=== PATIENT | female | born 1945 | race Caucasian/White ===

== ENCOUNTER 2025-02-23 12:49 | Inpatient (IN) | payer BC, OTHER ==
[~2025-02-23] VITALS: Ht 157.5 cm; Wt 53.6 kg
[~2025-02-23 12:49] MED LIST: DONE1TAB88 PO; DULO30CA2 PO; LORA-1121 PO; MAGN400T40 OR; MEMA10TA PO
[2025-02-23 13:30] VITALS: PULSE 101; RESP 18; O2SAT 99
--- NOTE | 2025-02-23 13:37 | ED.PDOC ---
Altered Mental Status HPI Comments 80-year-old female, with past medical history of Alzheimer's, dementia, hypertension, and psychosis presents to the emergency department for chief complaint of ALOC. Per EMS patient is coming from [facility] where staff called due to patient having a change in behavior and being more altered than usual. Per staff, patient's baseline is alert and oriented x2 to name and date however, since commencement of symptoms patient is A&Ox0. From patient's transfer paperwork it is noted that patient is a full code. Due to patient's condition no other symptoms, modifying factors, or medical history is obtainable at this time. Chief Complaint: ALOC Time Seen by MD: 13:00 Primary Care Provider: UNKNOWN Reviewed Notes: Nurses Notes, Membership Correspondent Notes, Medications, Allergies Allergies: Coded Allergies: Codeine (Unverified Allergy, Unknown, 08/24/14) Levofloxacin (Unverified Allergy, Unknown, 08/24/14) Quinine (Unverified Allergy, Unknown, 08/24/14) Home Meds Reported Medications Lorazepam (ATIVAN TABLET) 0.5 Mg Tb, 1 MG PO Q6HPRN PRN for ANXIETY, #90 TAB 09/04/14 Memantine Hydrochloride (Namenda) 10 Mg Tab, 20 PO DAILY for 30 Days, MG 09/04/14 Magnesium Oxide (MAGNESIUM OXIDE) 400 Mg Tab, 400 MG OR DAILY, TAB 09/04/14 Duloxetine Hcl (CYMBALTA CAPSULE) 30 Mg Cp, 30 MG PO DAILY, CP 09/04/14 Donepezil Hydrochloride (DONEPEZIL HCL) 10 Mg Tab, 10 MG PO BID for 30 Days, MG 09/04/14 Information Source: Emergency Med Personnel Mode of Arrival: EMS Severity: Moderate Timing: Hours Duration: Since onset Prehospital treatment: None Quality: Decreased Alertness Recent: None History of: Dementia Associated Signs and Symptoms: None Past Medical History PAST MEDICAL HISTORY: Alzheimer, Dementia, HTN Surgical History: Appendectomy, Cholecystectomy, Tonsillectomy 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: No Pertinent 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 Family History Family History: Unobtainable Social History Smoker: Non-Smoker Alcohol: Denies ETOH Use Drugs: Denies Drug Use Lives In: Home Unable to Obtain due to: Altered Mental Status All Other Systems: Reviewed and Negative Physical Exam General Appearance: Moderate Distress HEENT: Pale [place]junt[place]ae (L), Pale [place]ae (R), Pharynx Normal, TMs Normal Neck: Full Range of Motion, Non-Tender, Normal, Normal Inspection Respiratory: Chest Non-Tender, Lungs Clear, No Accessory Muscle Use, No Respiratory Distress, Normal Breath Sounds Cardiovascular: No Edema, No JVD, No Murmur, No Gallop, Normal Peripheral Pulses, Regular Rate/Rhythm Breast Exam: Deferred Gastrointestinal: No Organomegaly, Non Tender, No Pulsatile Mass, Normal Bowel Sounds, Soft Genitalia: Deferred Pelvic: Deferred Rectal: Deferred Extremities: No calf tenderness, Normal capillary refill, No pedal edema Musculoskeletal : Apperance: Normal 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 Was a procedure done?: No Differential Diagnosis (ALOC) Differential Diagnosis: Dehydration, Hypoglycemia, Sepsis X-Ray, Labs, Meds, VS Vital Signs Date Time Temp Pulse Resp B/P (MAP) Pulse Ox O2 Delivery O2 Flow Rate FiO2 02/23/25 15:22 74 12 128/78 (95) 98 02/23/25 15:04 72 13 137/70 (92) 99 02/23/25 13:30 101 18 99 Room Air* 0 21 02/23/25 13:30 97.6 101 18 112/75 (87) 99 97.6 02/23/25 12:53 97.2 97 12 110/83 96 97.2 Lab Test 02/23/25 14:41 02/23/25 13:56 02/23/25 13:21 Range/Units Urine Color Pending Urine Clarity Pending Urine pH Pending Urine Specific [place] Pending Urine Protein Pending Urine Ketones Pending Urine Blood Pending Urine Nitrite Pending Urine Bilirubin Pending Urine Urobilinogen Pending Urine Leukocyte Esterase Pending Urine RBC Pending Urine Microscopic WBC Pending Urine Squamous Epithelial Cells Pending Urine Bacteria Pending Urine Glucose Pending White Blood Count 7.8 4.4-10.8 10^3/uL Red Blood Count 3.49 L 4.0-5.20 10^6/uL Hemoglobin 8.6 L 12.2-16.2 g/dL Hematocrit 26.7 L 36.0-46.0 % Mean Corpuscular Volume 76.4 L 80.0-100.0 fL Mean Corpuscular Hemoglobin 24.6 L 28.0-32.0 pg Mean Corpuscular Hemoglobin Concent 32.2 32.0-36.0 g/dL Red Cell Distribution Width 20.5 H 11.8-14.3 % Platelet Count 300 140-450 10^3/uL Mean Platelet Volume 6.8 L 6.9-10.8 fL Neutrophils (%) (Auto) 70.9 37.0-80.0 % Lymphocytes (%) (Auto) 17.5 10.0-50.0 % Monocytes (%) (Auto) 8.0 0.0-12.0 % Eosinophils (%) (Auto) 3.0 0.0-7.0 % Basophils (%) (Auto) 0.6 0.0-2.0 % Neutrophils # (Auto) 5.5 1.6-8.6 10 ^3/uL Lymphocytes # (Auto) 1.4 0.4-5.4 10 ^3/uL Monocytes # (Auto) 0.6 0-1.3 10 ^3/uL Eosinophils # (Auto) 0.2 0-0.8 10 ^3/uL Basophils # (Auto) 0 0-0.2 10 ^3/uL Nucleated Red Blood Cells 0.0 % Sodium Level 141 136-145 mmol/L Potassium Level 4.4 3.5-5.1 mmol/L Chloride Level 109 H 98-107 mmol/L Carbon Dioxide Level 26 20-31 mmol/L Anion Gap 6 5-15 Blood Urea Nitrogen 10 9-23 mg/dL Creatinine 0.57 0.550-1.02 mg/dL Glomerular Filtration Rate Calc 93 >90 mL/min BUN/Creatinine Ratio 17.5 10.0-20.0 Serum Glucose 104 74-106 mg/dL Lactic Acid Level 1.3 0.4-2.0 mmol/L Calcium Level 8.9 8.7-10.4 mg/dL POC Glucose 96 70-106 mg/dl Current Medications Medications (Trade) Dose Ordered Sig/Zachary Route Start Time Stop Time Status Last Admin Sodium Chloride 1,000 ml @ 1,000 mls/hr Q1H ONCE IVB 02/23/25 13:45 02/23/25 14:44 DC 02/23/25 14:14 CXR Shows: IMPRESSION: 1. Scarring or linear atelectasis right base. No prior studies for comparison. Head CT Shows: IMPRESSION: 1. No acute intracranial abnormality. 2. Mild cerebral volume loss and mild chronic microvascular ischemic change. 3. 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 4. 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 IV Hep-Lock was established The patient was given a 1 L bolus of normal saline The patient's CBC shows anemia with a hemoglobin of 8.6 and hematocrit of 26.7 The chemistry panel is within normal limits At this time, the patient will be admitted with a diagnosis of autonomic dysfunction The urine test is pending Images Reviewed?: Images reviewed and evaluated by me Time of 1ST Reevaluation: 13:30 Reevaluation 1ST: Unchanged Patient Education/Counseling: Diagnosis, Treatment, Prognosis Family Education/Counseling: No Family Present SEPSIS Sepsis Screen Date sepsis recognized/suspect: Feb 23, 2025 Time Sepsis recognized/suspect: 1253 Recent Procedure: No On Antibiotic Therapy: No Respiratory Rate >20: No Heart Rate >90: Yes Temp<36 C (96.8 F) or >38.3 C: No SBP <90 or MAP <65 mmHG: No New Acute Mental Status Change: No Is the patient on CPAP, BIPAP,: No Physician Orders Urinalysis (02/23/25 13:36) Chest Portable (02/23/25 13:36) Head Without Contrast (02/23/25 13:36) Moran Catheters (02/23/25 13:36) Production Support Consultant (02/23/25 13:36) Pulse Oximetry (02/23/25 13:36) Blood Pressure (02/23/25 13:36) Heplock Iv (02/23/25 13:36) Blood Culture (02/23/25 13:36) Urine Bacterial Culture (02/23/25 14:49) Vital Signs Date Time Temp Pulse Resp B/P (MAP) Pulse Ox O2 Delivery O2 Flow Rate FiO2 02/23/25 15:22 74 12 128/78 (95) 98 02/23/25 15:04 72 13 137/70 (92) 99 02/23/25 13:30 101 18 99 Room Air* 0 21 02/23/25 13:30 97.6 101 18 112/75 (87) 99 97.6 02/23/25 12:53 97.2 97 12 110/83 96 97.2 Laboratory Tests Test 02/23/25 13:56 Lactic Acid Level 1.3 mmol/L (0.4-2.0) White Blood Count 7.8 10^3/uL (4.4-10.8) Medications Medications Dose Ordered Sig/Zachary Route Start Time Stop Time Status Last Admin Dose Admin Sodium Chloride 1,000 ml @ 1,000 mls/hr Q1H ONCE IVB 02/23/25 13:45 02/23/25 14:44 DC 02/23/25 14:14 Departure 1 Departure Time of Disposition: 16:18 Impression: Primary Impression: Autonomic dysfunction Additional Impression: Generalized weakness Disposition: 09 ADMITTED INPATIENT Admit to: [facility] Condition: Fair Critical Care Note Critical Care Time?: Yes (45 min-critical care time only) Stability Stability form required: Yes Unstable for transfer: Telemetry monitoring (Telemetry monitoring required), ED Physician Assesment (Clinical assesment) Heart Score Heart Score: Heart Score Response (Comments) Value History N/A 0 EKG N/A 0 Age N/A 0 Risk Factors N/A 0 Troponin N/A 0 Total 0 I personally scribed for CORAZON KELLEY MD ([email or web address]) on 02/23/25 at 13:37. Electronically submitted by Fanny Akbar ([email or web address]). I personally scribed for CORAZON KELLEY MD (TIMSLE) on 02/23/25 at 13:38. E lectronically submitted by Fanny Akbar ([email or web address]). I personally scribed for CORAZON KELLEY MD (TIMSLE) on 02/23/25 at 14:52. Radha ctronically submitted by Fanny Akbar ([email or web address]). I personally scribed for CORAZON KELLEY MD (TIMSLE) on 02/23/25 at 14:54. Elect ronically submitted by Fanny Akbar ([email or web address]). I personally scribed for CORAZON KELLEY MD ([email or web address]) on 02/23/25 at 15:14. Electronically submitted by Fanny Akbar ([email or web address]). CORAZON KELLEY MD Feb 23, 2025 13:37
[2025-02-23] MEDS: SODIUM CHLORIDE 0.9% 1,000 ML IVB ONE (14:14)
--- NOTE | 2025-02-23 14:34 | DVH ---
CHEST RADIOGRAPH Indication: aloc Technique: Single frontal view of the chest was obtained Comparison: None FINDINGS: Lines and Tubes: None Lungs: No focal consolidation. Scarring or linear atelectasis right base. No prior studies for comparison. Pleura: No effusion. No pneumothorax. Cardiomediastinal contours: Unremarkable Bones: No acute osseous abnormality. IMPRESSION: 1. Scarring or linear atelectasis right base. No prior studies for comparison.
[2025-02-23 14:38] LABS: Hematocrit 26.7 % (36.0-46.0); Hemoglobin 8.6 g/dL (12.2-16.2); Mean Corpuscular Hemoglobin 24.6 pg (28.0-32.0); Mean Corpuscular Volume 76.4 fL (80.0-100.0); Nucleated Red Blood Cells % 0.0 %
--- NOTE | 2025-02-23 14:45 | DVH ---
CLINICAL HISTORY: aloc TECHNIQUE: Helical imaging carried out from skull base to vertex without intravenous contrast. This exam was performed according to our departmental dose optimization program. Up-to-date CT equipment and radiation dose reduction techniques are utilized as appropriate. CTDIVol: 53.61 mGy DLP: 1075.63 mGy-cm WID: COMPARISON: None FINDINGS: Mild cerebral volume loss with concordant prominence of the subarachnoid spaces and ventricles. 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 There is mild patchy low attenuation in the cerebral white matter consistent with nonspecific white matter disease. Small infarct in the anterior limb left internal capsule. There is no midline shift or mass effect. The zambrano white matter interfaces are maintained. The basal cisterns are patent. There is no evidence of acute intracranial hemorrhage or extra-axial fluid collection. The mastoid air cells and visualized paranasal sinuses are well-aerated. IMPRESSION: 1. No acute intracranial abnormality. 2. Mild cerebral volume loss and mild chronic microvascular ischemic change. 3. 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 4. 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
[2025-02-23 15:08] LABS: Anion Gap 6 (5-15); Carbon Dioxide 26 mmol/L (20-31); Potassium 4.4 mmol/L (3.5-5.1); Sodium 141 mmol/L (136-145)
[2025-02-23 15:09] LABS: Calcium 8.9 mg/dL (8.7-10.4)
[2025-02-23 15:13] LABS: Glucose 104 mg/dL (74-106)
[2025-02-23 15:14] LABS: BUN/Creatinine Ratio 17.5 (10.0-20.0); Blood Urea Nitrogen 10 mg/dL (9-23)
[2025-02-23 15:16] LABS: Chloride 109 mmol/L (98-107)
[2025-02-23 16:29] LABS: Urine Protein, UAD Negative (Negative)
[2025-02-23 19:40] VITALS: PULSE 82; RESP 14; O2SAT 99
[2025-02-23] MEDS ORDERED: ONDANSETRON HCL 4 MG/2 ML VIAL IV PRN (19:45)
--- NOTE | 2025-02-23 21:49 | DVHHP2 ---
History of Present Illness Reason for Visit: Altered mental status History of Present Illness 80-year-old female presents for evaluation of altered mental status. Patient resides at [facility]. She has a history of dementia. She was noted to be progressively more lethargic and confused by staff at the [facility]. Currently she is lethargic oriented to self. No slurred speech or unilateral weakness. Past Medical History Hypertension, dementia Past Surgical History Cholecystectomy, tonsillectomy, appendectomy Family History Noncontributory Smoke: No ALCOHOL: none Drugs: None Lives: with Family Review of Systems Review of Systems Review of systems are currently negative otherwise addressed in HPI. Allergies: Coded Allergies: Codeine (Unverified Allergy, Unknown, 08/24/14) Levofloxacin (Unverified Allergy, Unknown, 08/24/14) Quinine (Unverified Allergy, Unknown, 08/24/14) Medications Current Medications Medications Dose Ordered Sig/Zachary Route Start Time Stop Time Status Last Admin Dose Admin Ceftriaxone Sodium 50 ml @ 100 mls/hr DAILY@09 IV 02/24/25 09:00 Donepezil HCl 10 mg BID PO 02/23/25 22:00 Duloxetine HCl 30 mg DAILY PO 02/24/25 10:00 Ondansetron HCl 4 mg Q4HP PRN IV 02/23/25 19:45 Enoxaparin Sodium 40 mg DAILY SC 02/24/25 10:00 Acetaminophen 650 mg Q6HP PRN PO 02/23/25 19:45 Exam Vital Signs Vital Signs Date Time Temp Pulse Resp B/P (MAP) Pulse Ox O2 Delivery O2 Flow Rate FiO2 02/23/25 20:00 98.2 74 15 147/79 (101) 97 98.2 02/23/25 19:40 Room Air* 0 21 Exam Gen: 80-year-old female in mild distress Skin: Warm, dry, normal color and texture, no rash. HEENT: Normocephalic atraumatic, mucous membranes moist and pink. Neck: Cervical and supraclavicular nodes normal without enlargement, trachea is midline, thyroid gland is normal without masses. Pulmonary: Clear to auscultation and percussion bilaterally. Cardiac: Regular rate and rhythm. No murmur Abdomen: Soft, nontender, nondistended, bowel sounds present all 4 quadrants, no guarding, no rigidity, no organomegaly. Extremities: No cyanosis, clubbing, no edema Neuro: Lethargic Labs/Xrays ORDERING PHYSICIAN: CORAZON KELLEY MD PROCEDURE(s): CXRP - CHEST PORTABLE REASON: aloc ORDER NUMBER(s): [id number], ACCESSION NUMBER(s): [id number] CHEST RADIOGRAPH Indication: aloc Technique: Single frontal view of the chest was obtained Comparison: None FINDINGS: Lines and Tubes: None Lungs: No focal consolidation. Scarring or linear atelectasis right base. No prior studies for comparison. Pleura: No effusion. No pneumothorax. Cardiomediastinal contours: Unremarkable Bones: No acute osseous abnormality. IMPRESSION: 1. Scarring or linear atelectasis right base. No prior studies for comparison. RING PHYSICIAN: CORAZON KELLEY MD PROCEDURE(s): HWOCT - HEAD WITHOUT CONTRAST REASON: aloc ORDER NUMBER(s): [id number], ACCESSION NUMBER(s): [id number] CLINICAL HISTORY: aloc TECHNIQUE: Helical imaging carried out from skull base to vertex without intravenous contrast. This exam was performed according to our departmental dose optimization program. Up-to-date CT equipment and radiation dose reduction techniques are utilized as appropriate. CTDIVol: 53.61 mGy DLP: 1075.63 mGy-cm WID: COMPARISON: None FINDINGS: Mild cerebral volume loss with concordant prominence of the subarachnoid spaces and ventricles. 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 There is mild patchy low attenuation in the cerebral white matter consistent with nonspecific white matter disease. Small infarct in the anterior limb left internal capsule. There is no midline shift or mass effect. The zambrano white matter interfaces are maintained. The basal cisterns are patent. There is no evidence of acute intracranial hemorrhage or extra-axial fluid collection. The mastoid air cells and visualized paranasal sinuses are well-aerated. IMPRESSION: 1. No acute intracranial abnormality. 2. Mild cerebral volume loss and mild chronic microvascular ischemic change. 3. 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 4. 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 Labs Test 02/23/25 14:41 02/23/25 13:56 02/23/25 13:21 Range/Units Urine Color Colorless Yellow Urine Clarity Clear Clear Urine pH 6.5 5.0-9.0 Urine Specific [place] 1.005 1.001-1.035 Urine Protein Negative Negative Urine Ketones Negative Negative Urine Blood Negative Negative /uL Urine Nitrite 2+ H Negative Urine Bilirubin Negative Negative Urine Urobilinogen Normal Negative mg/dL Urine Leukocyte Esterase 2+ Negative /uL Urine RBC <1 0 - 4 /hpf Urine Microscopic WBC 5 0-5 /HPF Urine Squamous Epithelial Cells Few <5 /hpf Urine Bacteria Few H None Seen /hpf Urine Glucose Normal Normal mg/dL White Blood Count 7.8 4.4-10.8 10^3/uL Red Blood Count 3.49 L 4.0-5.20 10^6/uL Hemoglobin 8.6 L 12.2-16.2 g/dL Hematocrit 26.7 L 36.0-46.0 % Mean Corpuscular Volume 76.4 L 80.0-100.0 fL Mean Corpuscular Hemoglobin 24.6 L 28.0-32.0 pg Mean Corpuscular Hemoglobin Concent 32.2 32.0-36.0 g/dL Red Cell Distribution Width 20.5 H 11.8-14.3 % Platelet Count 300 140-450 10^3/uL Mean Platelet Volume 6.8 L 6.9-10.8 fL Neutrophils (%) (Auto) 70.9 37.0-80.0 % Lymphocytes (%) (Auto) 17.5 10.0-50.0 % Monocytes (%) (Auto) 8.0 0.0-12.0 % Eosinophils (%) (Auto) 3.0 0.0-7.0 % Basophils (%) (Auto) 0.6 0.0-2.0 % Neutrophils # (Auto) 5.5 1.6-8.6 10 ^3/uL Lymphocytes # (Auto) 1.4 0.4-5.4 10 ^3/uL Monocytes # (Auto) 0.6 0-1.3 10 ^3/uL Eosinophils # (Auto) 0.2 0-0.8 10 ^3/uL Basophils # (Auto) 0 0-0.2 10 ^3/uL Nucleated Red Blood Cells 0.0 % Sodium Level 141 136-145 mmol/L Potassium Level 4.4 3.5-5.1 mmol/L Chloride Level 109 H 98-107 mmol/L Carbon Dioxide Level 26 20-31 mmol/L Anion Gap 6 5-15 Blood Urea Nitrogen 10 9-23 mg/dL Creatinine 0.57 0.550-1.02 mg/dL Glomerular Filtration Rate Calc 93 >90 mL/min BUN/Creatinine Ratio 17.5 10.0-20.0 Serum Glucose 104 74-106 mg/dL Lactic Acid Level 1.3 0.4-2.0 mmol/L Calcium Level 8.9 8.7-10.4 mg/dL POC Glucose 96 70-106 mg/dl SEPSIS Sepsis Screen Date sepsis recognized/suspect: Feb 23, 2025 Time Sepsis recognized/suspect: 2007 Recent Procedure: Yes On Antibiotic Therapy: No Respiratory Rate >20: No Heart Rate >90: No Temp<36 C (96.8 F) or >38.3 C: No SBP <90 or MAP <65 mmHG: No New Acute Mental Status Change: No Is the patient on CPAP, BIPAP,: No Physician Orders Urine Bacterial Culture (02/23/25 14:49) Ceftriaxone 1gm/50ml (Rocephin) (02/24/25 09:00) Donepezil Tablet (Aricept Tablet) (02/23/25 22:00) Duloxetine Hcl Capsule (Cymbalta Capsule (02/24/25 10:00) Basic Metabolic Panel (02/24/25 04:00) Admit (02/23/25 19:42) Ondansetron Hcl (Zofran) (02/23/25 19:45) Enoxaparin Sodium (Lovenox) (02/24/25 10:00) Cardiac Diet-2gna,Lofat,Lochol (02/24/25 Breakfast) Condition: Stable (02/23/25 19:42) Acetaminophen Tablet (Tylenol Tablet) (02/23/25 19:45) Bedrest With Bathroom Privileg (02/23/25 19:42) Vital Signs Date Time Temp Pulse Resp B/P (MAP) Pulse Ox O2 Delivery O2 Flow Rate FiO2 02/23/25 20:00 98.2 74 15 147/79 (101) 97 98.2 11/9/25 19:40 82 14 99 Room Air* 0 21 02/23/25 18:00 78 13 136/70 (92) 98 02/23/25 17:46 74 02/23/25 17:00 97.8 80 9 129/75 (93) 98 97.8 02/23/25 16:00 84 9 123/71 (88) 98 02/23/25 15:22 74 12 128/78 (95) 98 02/23/25 15:04 72 13 137/70 (92) 99 Laboratory Tests Test 02/23/25 13:56 Lactic Acid Level 1.3 mmol/L (0.4-2.0) White Blood Count 7.8 10^3/uL (4.4-10.8) Medications Medications Dose Ordered Sig/Zachary Route Start Time Stop Time Status Last Admin Dose Admin Ceftriaxone Sodium 50 ml @ 100 mls/hr ONCE ONCE IV 02/23/25 19:45 02/23/25 20:14 DC 02/23/25 20:22 100 MLS/HR Sodium Chloride 1,000 ml @ 1,000 mls/hr Q1H ONCE IVB 02/23/25 13:45 02/23/25 14:44 DC 02/23/25 14:14 1,000 MLS/HR Assessment/Plan Assessment/Plan Assessment Metabolic encephalopathy UTI Dementia Hypertension Plan Admit the patient to [facility] to the hospitalist Mak Urine bacterial culture pending Resume home medications Continue treatment per orders Plan discussed with: Patient My Orders Orders - LOU WALLIS AGACNSam Procedure Category Date Status Time Ceftriaxone 1gm/50ml PHA 02/24/25 In Process (Rocephin) 09:00 Donepezil Tablet PHA 02/23/25 In Process (Aricept Tablet) 22:00 Duloxetine Hcl PHA 02/24/25 In Process Capsule (Cymbalta 10:00 Basic Metabolic Panel LAB 02/24/25 Verified 04:00 Admit ADMIT 02/23/25 Transmitted 19:42 Ondansetron Hcl PHA 02/23/25 In Process (Zofran) 19:45 Enoxaparin Sodium PHA 02/24/25 In Process (Lovenox) 10:00 Cardiac DIET 02/24/25 Transmitted Diet-2gna,Lofat,Lochol Breakfast Condition: Stable IRENA 02/23/25 In Process 19:42 Acetaminophen Tablet PHA 02/23/25 In Process (Tylenol Tablet) 19:45 Bedrest With Bathroom IRENA 02/23/25 In Process Privileg 19:42 Date of Service: Feb 23, 2025 Billing Provider: LOU WALLIS Common Visit Codes: [id number] INP/OBS CARE (HIGH) LOU WALLIS Feb 23, 2025 21:49
[2025-02-23 22:50] VITALS: BP 134/89; PULSE 84; RESP 18; TEMP 97.9; O2SAT 96
[2025-02-23] MEDS: DONEPEZIL HYDROCHLORIDE 5 MG TAB PO SCH (23:12)
[2025-02-24] VITALS (7 sets, daily range): BP systolic 119–140; BP diastolic 70–96; PULSE 62–99; RESP 16–18; TEMP 97.8–98.8; O2SAT 94–98
[2025-02-24 08:28] LABS: Potassium 4.1 mmol/L (3.5-5.1); Sodium 141 mmol/L (136-145)
[2025-02-24 08:29] LABS: Calcium 8.8 mg/dL (8.7-10.4); Carbon Dioxide 23 mmol/L (20-31)
[2025-02-24 08:34] LABS: BUN/Creatinine Ratio 24.4 (10.0-20.0); Blood Urea Nitrogen 10 mg/dL (9-23); Glucose 81 mg/dL (74-106)
[2025-02-24 09:04] LABS: Anion Gap 9 (5-15)
[2025-02-24 09:06] LABS: Chloride 109 mmol/L (98-107)
[2025-02-24] MEDS: ENOXAPARIN SOD 40 MG/0.4 ML SYRINGE SC SCH (10:38)
--- NOTE | 2025-02-24 12:49 | DVHPN2 ---
Subjective confused at bedside with arianne oriented to self only Reviewed: H&P Changes from previous H/P or p: No Changes Objective Vitals Vital Signs Date Time Temp Pulse Resp B/P (MAP) Pulse Ox O2 Delivery O2 Flow Rate FiO2 02/24/25 09:00 98.8 82 16 119/82 (94) 96 98.8 02/24/25 08:00 Room Air* 0 21 Intake/Output Intake and Output 02/24/25 07:00 Intake Total 1250 ml Output Total 1500 ml Balance -250 ml Intake Oral 200 ml IV Total 1050 ml Output Urine Total 1500 ml General Appearance: Alert Lungs: Clear to auscultation Cardiovascular: Regular rate, Normal S1, Normal S2 Abdomen: Normal bowel sounds Medications Current Medications Medications Dose Ordered Sig/Zachary Route Start Time Stop Time Status Last Admin Dose Admin Ceftriaxone Sodium 50 ml @ 100 mls/hr DAILY@09 IV 02/24/25 09:00 02/24/25 09:00 100 MLS/HR Donepezil HCl 10 mg BID PO 02/23/25 22:00 02/23/25 23:12 10 MG Duloxetine HCl 30 mg DAILY PO 02/24/25 10:00 Ondansetron HCl 4 mg Q4HP PRN IV 02/23/25 19:45 Enoxaparin Sodium 40 mg DAILY SC 02/24/25 10:00 02/24/25 10:38 40 MG Acetaminophen 650 mg Q6HP PRN PO 02/23/25 19:45 Laboratory Results Laboratory Tests 02/23/25 13:56 02/24/25 06:53 Chemistry Test 02/23/25 13:56 02/24/25 06:53 Calcium Level 8.9 mg/dL (8.7-10.4) 8.8 mg/dL (8.7-10.4) Urinalysis Test 02/23/25 14:41 Urine Color Colorless (Yellow) Urine Clarity Clear (Clear) Urine pH 6.5 (5.0-9.0) Urine Specific [place] 1.005 (1.001-1.035) Urine Protein Negative (Negative) Urine Ketones Negative (Negative) Urine Blood Negative /uL (Negative) Urine Nitrite 2+ (Negative) H Urine Bilirubin Negative (Negative) Urine Urobilinogen Normal mg/dL (Negative) Urine Leukocyte Esterase 2+ /uL (Negative) Urine RBC <1 /hpf (0 - 4) Urine Microscopic WBC 5 /HPF (0-5) Urine Squamous Epithelial Cells Few /hpf (<5) Urine Bacteria Few /hpf (None Seen) H Urine Glucose Normal mg/dL (Normal) Microbiology Microbiology Date/Time Source Procedure Growth Status 02/23/25 14:41 Urine - Catheterized Urine Culture - Preliminary Resulted Assessment/Plan Assessment/Plan Acute Metabolic encephalopathy UTI Dementia Hypertension Continue IV ceftriaxone restart home medication Plan discussed with: Other ([facility]) Date of Service: Feb 24, 2025 Billing Provider: SANYA POND MD Common Visit Codes: [id number] INP/OBS CARE(HIGH) SANYA POND MD Feb 24, 2025 12:49
[2025-02-24] MEDS ORDERED: HAL5T PO (12:58)
[2025-02-24] MEDS ORDERED: QUET50TA PO (12:58)
[2025-02-24] MEDS ORDERED: QUET100T38 PO (12:58)
[2025-02-24] MEDS ORDERED: DONEPEZIL HYDROCHLORIDE 5 MG TAB PO SCH (22:00)
[2025-02-24] MEDS ORDERED: PATIENTS OWN MEDICATION (Donepezil Hydrochloride (Donepezil Hcl) 10 MG) PO SCH (22:00)
[2025-02-24] MEDS: DONEPEZIL HYDROCHLORIDE 5 MG TAB PO SCH (22:12)
[2025-02-25] VITALS (8 sets, daily range): BP systolic 127–141; BP diastolic 70–81; PULSE 67–82; RESP 14–18; TEMP 97.4–98.7; O2SAT 96–98
--- NOTE | 2025-02-25 18:07 | DVHPN2 ---
Subjective oriented to self only had a long discussion with daughter sydney and baseline confused Reviewed: H&P Changes from previous H/P or p: No Changes Objective Vitals Vital Signs Date Time Temp Pulse Resp B/P (MAP) Pulse Ox O2 Delivery O2 Flow Rate FiO2 02/25/25 16:55 97.4 67 16 133/73 (93) 98 97.4 02/25/25 08:00 Room Air* 0 21 Intake/Output Intake and Output 02/25/25 05:00 Intake Total 450 ml Output Total 900 ml Balance -450 ml Intake Oral 450 ml Output Urine Total 900 ml General Appearance: Alert Lungs: Clear to auscultation Cardiovascular: Regular rate, Normal S1, Normal S2 Abdomen: Normal bowel sounds Medications Current Medications Medications Dose Ordered Sig/Zachary Route Start Time Stop Time Status Last Admin Dose Admin Ceftriaxone Sodium 50 ml @ 100 mls/hr DAILY@09 IV 02/24/25 09:00 02/25/25 09:31 100 MLS/HR Ondansetron HCl 4 mg Q4HP PRN IV 02/23/25 19:45 Enoxaparin Sodium 40 mg DAILY SC 02/24/25 10:00 02/25/25 09:31 40 MG Acetaminophen 650 mg Q6HP PRN PO 02/23/25 19:45 Patient Own Medication 10 mg BID PO 02/24/25 22:00 UNV Laboratory Results Laboratory Tests 02/23/25 13:56 02/24/25 06:53 Urinalysis Test 02/23/25 14:41 Urine Color Colorless (Yellow) Urine Clarity Clear (Clear) Urine pH 6.5 (5.0-9.0) Urine Specific [place] 1.005 (1.001-1.035) Urine Protein Negative (Negative) Urine Ketones Negative (Negative) Urine Blood Negative /uL (Negative) Urine Nitrite 2+ (Negative) H Urine Bilirubin Negative (Negative) Urine Urobilinogen Normal mg/dL (Negative) Urine Leukocyte Esterase 2+ /uL (Negative) Urine RBC <1 /hpf (0 - 4) Urine Microscopic WBC 5 /HPF (0-5) Urine Squamous Epithelial Cells Few /hpf (<5) Urine Bacteria Few /hpf (None Seen) H Urine Glucose Normal mg/dL (Normal) Microbiology Microbiology Date/Time Source Procedure Growth Status 02/24/25 04:37 Nose MRSA Screen - Final Complete 02/23/25 14:41 Urine - Catheterized Urine Culture - Preliminary Resulted 02/23/25 13:56 Blood Blood Culture - Preliminary NO GROWTH AFTER 48 HOURS OF INCUBATION. Resulted Assessment/Plan Assessment/Plan Acute Metabolic encephalopathy UTI Dementia Hypertension Continue IV ceftriaxone restart home medication Per daughter would like to dc seroquel, haldol and any medications that can cause somnolence Plan discussed with: Patient Date of Service: Feb 25, 2025 Billing Provider: SANYA POND MD Common Visit Codes: [id number] INP/OBS CARE(HIGH) SANYA POND MD Feb 25, 2025 18:07
[2025-02-26] VITALS (9 sets, daily range): BP systolic 115–149; BP diastolic 50–83; PULSE 60–94; RESP 15–20; TEMP 97.2–99.4; O2SAT 97–98
[2025-02-26] MEDS: ACETAMINOPHEN 325 MG TAB PO PRN (09:52)
--- NOTE | 2025-02-26 14:01 | DVHDS2 ---
Discharge Summary Date of Admission Feb 23, 2025 at 19:42 Date of Discharge: Feb 26, 2025 Labs/Diagnostic Data: Laboratory Results Test 02/24/25 06:53 02/23/25 14:41 02/23/25 13:56 02/23/25 13:21 Sodium Level 141 mmol/L (136-145) Potassium Level 4.1 mmol/L (3.5-5.1) Chloride Level 109 mmol/L (98-107) Carbon Dioxide Level 23 mmol/L (20-31) Anion Gap 9 (5-15) Blood Urea Nitrogen 10 mg/dL (9-23) Creatinine 0.41 mg/dL (0.550-1.02) Glomerular Filtration Rate Calc 101 mL/min (>90) BUN/Creatinine Ratio 24.4 (10.0-20.0) Serum Glucose 81 mg/dL (74-106) Calcium Level 8.8 mg/dL (8.7-10.4) Urine Color Colorless (Yellow) Urine Clarity Clear (Clear) Urine pH 6.5 (5.0-9.0) Urine Specific [place] 1.005 (1.001-1.035) Urine Protein Negative (Negative) Urine Ketones Negative (Negative) Urine Blood Negative /uL (Negative) Urine Nitrite 2+ (Negative) Urine Bilirubin Negative (Negative) Urine Urobilinogen Normal mg/dL (Negative) Urine Leukocyte Esterase 2+ /uL (Negative) Urine RBC <1 /hpf (0 - 4) Urine Microscopic WBC 5 /HPF (0-5) Urine Squamous Epithelial Cells Few /hpf (<5) Urine Bacteria Few /hpf (None Seen) Urine Glucose Normal mg/dL (Normal) White Blood Count 7.8 10^3/uL (4.4-10.8) Red Blood Count 3.49 10^6/uL (4.0-5.20) Hemoglobin 8.6 g/dL (12.2-16.2) Hematocrit 26.7 % (36.0-46.0) Mean Corpuscular Volume 76.4 fL (80.0-100.0) Mean Corpuscular Hemoglobin 24.6 pg (28.0-32.0) Mean Corpuscular Hemoglobin Concent 32.2 g/dL (32.0-36.0) Red Cell Distribution Width 20.5 % (11.8-14.3) Platelet Count 300 10^3/uL (140-450) Mean Platelet Volume 6.8 fL (6.9-10.8) Neutrophils (%) (Auto) 70.9 % (37.0-80.0) Lymphocytes (%) (Auto) 17.5 % (10.0-50.0) Monocytes (%) (Auto) 8.0 % (0.0-12.0) Eosinophils (%) (Auto) 3.0 % (0.0-7.0) Basophils (%) (Auto) 0.6 % (0.0-2.0) Neutrophils # (Auto) 5.5 10 ^3/uL (1.6-8.6) Lymphocytes # (Auto) 1.4 10 ^3/uL (0.4-5.4) Monocytes # (Auto) 0.6 10 ^3/uL (0-1.3) Eosinophils # (Auto) 0.2 10 ^3/uL (0-0.8) Basophils # (Auto) 0 10 ^3/uL (0-0.2) Nucleated Red Blood Cells 0.0 % Lactic Acid Level 1.3 mmol/L (0.4-2.0) POC Glucose 96 mg/dl (70-106) Other Laboratory Tests 02/24/25 06:53 02/23/25 13:56 Brief Hx & Hospital Course: 80-year-old female presents for evaluation of altered mental status. Patient resides at [facility]. She has a history of dementia. She was noted to be progressively more lethargic and confused by staff at the facility. Currently she is lethargic oriented to self. No slurred speech or unilateral weakness. During hospital stay encephalopathy resolved UTI also got better, urine cx negative Condition at Discharge: Good Final Diagnosis/Problems List UTI Metabolic encephalopathy Discharge Disposition: Shelter Facility Discharge Instruct/Medications Diet: Regular Activity: No Restrictions, As Tolerated Follow Up/Referral: PCP in 7 days Medications: same home medications Scheduled Donepezil Hydrochloride (Donepezil Hcl), 10 MG PO BID, (Reported) Duloxetine Hcl (Cymbalta Capsule), 30 MG PO DAILY, (Reported) Haloperidol (Haldol), 1 TAB PO QPM, (Reported) Magnesium Oxide (Magnesium Oxide), 400 MG OR DAILY, (Reported) Memantine Hydrochloride (Namenda), 20 PO DAILY, (Reported) Quetiapine Fumerate (Seroquel), 1 TAB PO QAM, (Reported) Quetiapine Fumerate (Seroquel), 100 MG PO QPM, (Reported) Scheduled PRN Lorazepam (Ativan Tablet), 1 MG PO Q6HPRN PRN for ANXIETY, (Reported) Discharge Statement: "Patient was advised to return to the ER or call 911 if any headaches, dizziness, shortness of breath, chest pain, abdominal pain, bleeding, fevers, or worsening of medical condition. Patient was counseled about treatment plan, medications, possible side effects, patientverbalized understanding. All questions were answered to the best of my ability. This discharge took greater then 30 minutes in planning, reviewing documentation, counseling the patient, and discussing with other team members." ASSESSMENT ASSESSMENT Assessment UTI Metabolic encephalopathy Date of Service: Feb 26, 2025 Billing Provider: SANYA POND MD Common Visit Codes: [id number] DISCH DAY >30min SANYA POND MD Feb 26, 2025 14:01
--- NOTE | 2025-02-26 16:43 | DVHPN2 ---
Subjective oriented to self only had a long discussion with daughter sydney and baseline confused Reviewed: H&P Changes from previous H/P or p: No Changes Objective Vitals Vital Signs Date Time Temp Pulse Resp B/P (MAP) Pulse Ox O2 Delivery O2 Flow Rate FiO2 02/26/25 13:00 98.3 86 18 149/78 (101) 98 98.3 02/26/25 08:00 Room Air* 0 21 Intake/Output Intake and Output 02/26/25 05:00 Intake Total 520 ml Output Total 700 ml Balance -180 ml Intake Oral 520 ml Output Urine Total 700 ml General Appearance: Alert Lungs: Clear to auscultation Cardiovascular: Regular rate, Normal S1, Normal S2 Abdomen: Normal bowel sounds Medications Current Medications Medications Dose Ordered Sig/Zachary Route Start Time Stop Time Status Last Admin Dose Admin Ondansetron HCl 4 mg Q4HP PRN IV 02/23/25 19:45 Enoxaparin Sodium 40 mg DAILY SC 02/24/25 10:00 02/25/25 09:31 40 MG Acetaminophen 650 mg Q6HP PRN PO 02/23/25 19:45 02/26/25 09:52 650 MG Patient Own Medication 10 mg BID PO 02/24/25 22:00 UNV Cefepime HCl 50 ml @ 12.5 mls/hr Q8HR IV 02/26/25 22:00 UNV Laboratory Results Laboratory Tests 02/23/25 13:56 02/24/25 06:53 Urinalysis Test 02/23/25 14:41 Urine Color Colorless (Yellow) Urine Clarity Clear (Clear) Urine pH 6.5 (5.0-9.0) Urine Specific [place] 1.005 (1.001-1.035) Urine Protein Negative (Negative) Urine Ketones Negative (Negative) Urine Blood Negative /uL (Negative) Urine Nitrite 2+ (Negative) H Urine Bilirubin Negative (Negative) Urine Urobilinogen Normal mg/dL (Negative) Urine Leukocyte Esterase 2+ /uL (Negative) Urine RBC <1 /hpf (0 - 4) Urine Microscopic WBC 5 /HPF (0-5) Urine Squamous Epithelial Cells Few /hpf (<5) Urine Bacteria Few /hpf (None Seen) H Urine Glucose Normal mg/dL (Normal) Microbiology Microbiology Date/Time Source Procedure Growth Status 02/24/25 04:37 Nose MRSA Screen - Final Complete 02/23/25 14:41 Urine - Catheterized Urine Culture - Preliminary Enterobacter hormaechei Resulted 02/23/25 13:56 Blood Blood Culture - Preliminary NO GROWTH AFTER 72 HOURS OF INCUBATION. Resulted Assessment/Plan Assessment/Plan Acute Metabolic encephalopathy UTI Dementia Hypertension Continue IV ceftriaxone>cefepime. Reviewed urine cx and showed enterobacter restart home medication Per daughter would like to dc seroquel, haldol and any medications that can cause somnolence Plan discussed with: Other ([facility]) My Orders Orders - SANYA POND MD Procedure Category Date Status Time * Dietary Consult CONS 02/25/25 Transmitted 23:37 Sequential IRENA 02/25/25 In Process Compression Device 23:37 Discharge DISCHARGE 02/26/25 Transmitted 11:54 * Energy Systems Engineer CONS 02/26/25 Transmitted Consult 13:16 Cefepime 1gm/50ml PHA 02/26/25 Logged (Maxipime 1gm/50ml) 22:00 Date of Service: Feb 26, 2025 Billing Provider: SANYA POND MD Common Visit Codes: [id number] INP/OBS CARE(HIGH) SANYA POND MD Feb 26, 2025 16:43
[2025-02-26] MEDS: CEFEPIME 1GM/50ML 50 ML IV SCH (18:01)
[2025-02-27] VITALS (8 sets, daily range): BP systolic 123–138; BP diastolic 67–80; PULSE 69–91; RESP 16–18; TEMP 97.5–98.6; O2SAT 94–100
[2025-02-27] MEDS ORDERED: BACDST PO (12:29)
[2025-02-28 05:00] VITALS: BP 130/77; PULSE 61; RESP 18; TEMP 98.1; O2SAT 98
[2025-02-28 08:12] VITALS: RESP 16
--- NOTE | 2025-02-28 10:16 | DVHPN2 ---
Subjective oriented to self only had a long discussion with daughter sydney and baseline confused Reviewed: H&P Changes from previous H/P or p: No Changes Objective Vitals Vital Signs Date Time Temp Pulse Resp B/P (MAP) Pulse Ox O2 Delivery O2 Flow Rate FiO2 02/28/25 08:12 16 Room Air* 0 21 02/28/25 05:00 98.1 61 130/77 (94) 98 98.1 Intake/Output Intake and Output 02/28/25 07:00 Intake Total 1050 ml Output Total 1950 ml Balance -900 ml Intake Oral 1000 ml IV Total 50 ml Output Urine Total 1950 ml # Bowel Movements 2 General Appearance: Alert Lungs: Clear to auscultation Cardiovascular: Regular rate, Normal S1, Normal S2 Abdomen: Normal bowel sounds Medications Current Medications Medications Dose Ordered Sig/Zachary Route Start Time Stop Time Status Last Admin Dose Admin Ondansetron HCl 4 mg Q4HP PRN IV 02/23/25 19:45 Enoxaparin Sodium 40 mg DAILY SC 02/24/25 10:00 02/28/25 09:46 40 MG Acetaminophen 650 mg Q6HP PRN PO 02/23/25 19:45 02/26/25 09:52 650 MG Patient Own Medication 10 mg BID PO 02/24/25 22:00 UNV Cefepime HCl 50 ml @ 12.5 mls/hr Q12H IV 02/26/25 18:00 02/28/25 05:04 12.5 MLS/HR Laboratory Results Laboratory Tests 02/23/25 13:56 02/24/25 06:53 Urinalysis Test 02/23/25 14:41 Urine Color Colorless (Yellow) Urine Clarity Clear (Clear) Urine pH 6.5 (5.0-9.0) Urine Specific [place] 1.005 (1.001-1.035) Urine Protein Negative (Negative) Urine Ketones Negative (Negative) Urine Blood Negative /uL (Negative) Urine Nitrite 2+ (Negative) H Urine Bilirubin Negative (Negative) Urine Urobilinogen Normal mg/dL (Negative) Urine Leukocyte Esterase 2+ /uL (Negative) Urine RBC <1 /hpf (0 - 4) Urine Microscopic WBC 5 /HPF (0-5) Urine Squamous Epithelial Cells Few /hpf (<5) Urine Bacteria Few /hpf (None Seen) H Urine Glucose Normal mg/dL (Normal) Microbiology Microbiology Date/Time Source Procedure Growth Status 02/24/25 04:37 Nose MRSA Screen - Final Complete 02/23/25 14:41 Urine - Catheterized Urine Culture - Preliminary Enterobacter hormaechei Resulted 02/23/25 13:56 Blood Blood Culture - Preliminary NO GROWTH AFTER 72 HOURS OF INCUBATION. Resulted Assessment/Plan Assessment/Plan Acute Metabolic encephalopathy UTI Dementia Hypertension Continue IV ceftriaxone>cefepime. Reviewed urine cx and showed enterobacter>oral bactrim restart home medication Per daughter would like to dc seroquel, haldol and any medications that can cause somnolence Plan discussed with: Patient My Orders Orders - SANYA POND MD Procedure Category Date Status Time Discharge DISCHARGE 02/27/25 Transmitted 12:29 Date of Service: Feb 27, 2025 Billing Provider: SANYA POND MD Common Visit Codes: [id number] INP/OBS CARE(HIGH) SANYA POND MD Feb 28, 2025 10:16
[2025-02-28 11:36] VITALS: TEMP 36.7
[2025-02-28 13:00] VITALS: BP 114/74; PULSE 68; RESP 17; TEMP 97.9; O2SAT 96
[2025-02-28 17:21] VITALS: BP 132/80; PULSE 69; RESP 19; TEMP 98; O2SAT 95
== END 2025-02-28 18:43 | disposition home or self-care (01) | DRG 689 ==
LOC: EDBD 12:49 → ER 12:49 → OVERFLOW 19:42 → WEST WING 22:27 → CENTRAL 02-26 22:10
PROVIDERS: ADMIT Hospitalist; ATTEND Hospitalist
DX: N39.0 Urinary tract infection, site not specified (principal); G93.41 Metabolic encephalopathy; F02.80 Dementia in other diseases classified elsewhere, unspecified severity, without behavioral disturbance, psychotic disturbance, mood disturbance, and anxiety; I10 Essential (primary) hypertension; G90.89 Other disorders of autonomic nervous system; G30.9 Alzheimer's disease, unspecified; Z88.5 Allergy status to narcotic agent; Z79.899 Other long term (current) drug therapy; Z90.49 Acquired absence of other specified parts of digestive tract; Z86.73 Personal history of transient ischemic attack (TIA), and cerebral infarction without residual deficits
CPT/HCPCS: 36415; 70450; 71045; 80048; 81001; 82962; 83605; 85025; 87040; 87081; 87086; 87088; 87186; 96360; 99291; G0378